=== PATIENT | female | born 1960 | race Caucasian/White ===

== ENCOUNTER 2018-07-17 14:56 | Observation (INO) | payer BC, OTHER ==
[2018-07-17] MEDS ORDERED: Nitroglycerin 0.4 MG TAB (25 Tab Bottle) ONE (15:38)
--- NOTE | 2018-07-17 15:40 | RAD ---
PA AND LATERAL VIEWS OF THE CHEST: History: Chest pain. FINDINGS: The heart size is normal. The lungs are clear. The bony thorax is unremarkable. IMPRESSION: Normal exam. POS: GOLDIEH
[2018-07-17 15:41] LABS: #Eosinphils 0.2 thou/uL (0.0-0.7); #Lymphocytes 1.9 thou/uL (1.20-3.40); #Monocytes 0.6 thou/uL (0.11-0.59); #Neutrophils 5.6 thou/uL (1.40-6.50); %Basophils 0.5 % (0.0-1.0); %Eosinophils 2.1 % (0.0-10.0); %Lymphocytes 22.9 % (21.0-51.0); %Neutrophils 67.5 % (42.0-75.0); Hemoglobin 13.5 g/dL (12.0-16.0); Mean Corpuscular HGB CONC 33.2 g/dL (32.0-36.0); Mean Corpuscular Hemoglobin 29.9 pg (27.0-31.0); Mean Corpuscular Volume 90.1 fL (78.0-98.0); Mean Platelet Volume 7.5 fL (7.4-10.4); Platelet Count 328 thou/uL (130-400); RBC Distribution Width 11.5 % (11.5-14.5); White Blood Cell (WBC) Count 8.3 thou/uL (4.8-10.8)
[2018-07-17 16:02] LABS: Troponin I Less than 0.010 ng/mL (< 0.028)
[2018-07-17 16:09] LABS: ALT (SGPT) 22 U/L (8-55); AST (SGOT) 31 U/L (5-34); Albumin 4.3 g/dL (3.5-5.0); Alkaline Phosphatase 63 U/L (40-150); Anion Gap 13 mmol/L (10-20); BUN (Urea Nitrogen) 15 mg/dL (9.8-20.1); Bilirubin, Total 0.2 mg/dL (0.2-1.2); Calc. Creatinine Clearance 0 mL/min (70-130); Calcium 9.1 mg/dL (7.8-10.44); Carbon Dioxide 22 mmol/L (22-29); Chloride 106 mmol/L (98-107); Estimated GFR-MDRD 77; Globulin 3.2 g/dL (2.4-3.5); Glucose 93 mg/dL (70-105); Potassium 4.4 mmol/L (3.5-5.1); Protein, Total 7.5 g/dL (6.0-8.3); Sodium 137 mmol/L (136-145)
[2018-07-17] MEDS ORDERED: Acetaminophen 325 MG TAB PO PRN (19:14)
[2018-07-17] MEDS ORDERED: Guaifenesin DM 100-10/5 ML UDCUP PO PRN (19:14)
[2018-07-17] MEDS ORDERED: Senokot S 8.6-50 MG TAB PO PRN (19:14)
[2018-07-17] MEDS ORDERED: ALPRAZolam 0.25 MG TAB PO PRN (19:14)
[2018-07-17] MEDS ORDERED: Sodium Chloride 0.9% 1,000 ML IV SCH (19:15)
[2018-07-17] MEDS ORDERED: Acetaminophen 500 MG TAB ONE (19:18)
[2018-07-17 19:43] LABS: Troponin I Less than 0.010 ng/mL (< 0.028)
[2018-07-17 20:38] VITALS: BMI 29.5
[2018-07-17] MEDS: Famotidine 20 MG TAB PO SCH (20:57)
[2018-07-17 21:53] LABS: Troponin I Less than 0.010 ng/mL (< 0.028)
--- NOTE | 2018-07-18 02:49 | HP ---
REASON FOR ADMISSION: Chest pain. HISTORY OF PRESENT ILLNESS: The patient gives history of having retrosternal chest pain that started on this morning. It lasted for 20 minutes. She had radiation of this pain to her left upper extrem ity, back and to the neck area. It was 10/10 in intensity. She was also stressed out with her child edson. They are in the process of adopting a fourth child. No complaints of cough or expectoration. No complaints of fever, PND or orthopnea. No complaints of urinary frequency or urgency. 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 CURRENT MEDICATIONS: Takes estrogen pill orally, Xanax p.r.n. for anxiety, sertraline 25 mg daily, N exium 40 mg daily. ALLERGIES: DEMEROL and ZITHROMAX. PERSONAL HISTORY: Does not abuse alcohol or drugs. No history of smoking. Lives with her . FAMILY HISTORY: Mom at the age of 74 years. She has had history of lymphoma and psoriatic arth ritis. Father lived up to 70 years. He has had prior history of CABG. REVIEW OF SYSTEMS: The following complete review of systems was negative, unless otherwise mentioned in the HPI or below: Constitutional: Weight loss or gain, ability to conduct usual activities. Sk in: Rash, itching. Eyes: Double vision, pain. ENT/Mouth: Nose bleeding, neck stiffness, pain, te nderness. Cardiovascular: Palpitations, dyspnea on exertion, orthopnea. Respiratory: Shortness of breath, wheezing, cough, hemoptysis, fever or night sweats. Gastrointestinal: Poor appetite, abdominal pain, heartburn, nausea, vomiting, constipation, or diarrhea. Genitourinary: Urgency, frequency, dysuria, nocturia. Musculoskeletal: Pain, swelling. Neurologic/Psychiatric: Anxiety, depression. Allergy/Immunologic : Skin rash, bleeding tendency. PHYSICAL EXAMINATION: GENERAL: The patient is a 57-year-old female who is currently not in any acute distress. VITAL SIGNS: Blood pressure 140/110, pulse 70 per minute, respiratory rate 16 per minute, temperatur e 98.1 degrees Fahrenheit, saturating 100% on room air. NECK: Supple, no elevated JVD. HEENT: Eyes, extraocular muscles intact. Pupils reacting to light. Oral cavity, mucous membranes a re moist. No exudates or congestion. CARDIOVASCULAR: S1, S2 heard. Regular rhythm. RESPIRATORY: Air entry 1+ bilaterally. No rales or rhonchi. ABDOMEN: Soft, bowel sounds heard. No tenderness, rigidity or guarding. EXTREMITIES: No peripheral edema or calf tenderness. VASCULAR SYSTEM: Peripheral pulses 1+ bilateral, no ischemic ulcerations or gangrene. CENTRAL NERVOUS SYSTEM: No gross focal deficits noted. Patient is alert, awake, oriented well. PSYCHIATRIC: The patient's mood is a bit anxious, otherwise no hallucinations or delusions. LABORATORY AND X-RAY FINDINGS: Troponin x1 is negative. Albumin 4.3. Chest x-ray done shows no acu te cardiopulmonary abnormalities. BUN 15, creatinine 0.7, serum glucose 93. Liver enzymes are withi n normal limits. White count of 8, H&H 13 and 40, platelet count 328 with 67% neutrophils, MCV is 90 . CLINICAL IMPRESSION AND PLAN: The patient will be under observation on telemetry for chest pain, rul e out acute coronary syndrome. We will obtain two more sets of cardiac enzymes and a nuclear stress test in the morning. Patient also has some stress in her personal life, which is adding up to her cu rrent anxiety. She at times is tearful during my conversation with her. We will continue her Xanax p.r.n. and also continue her on full dose aspirin for now. We will also continue her home dose of Zo loft as before.
[2018-07-18 04:22] LABS: #Basophils 0.1 thou/uL (0.0-0.2); #Eosinphils 0.1 thou/uL (0.0-0.7); #Monocytes 0.5 thou/uL (0.11-0.59); #Neutrophils 2.9 thou/uL (1.40-6.50); %Basophils 0.9 % (0.0-1.0); %Eosinophils 2.6 % (0.0-10.0); %Lymphocytes 34.9 % (21.0-51.0); %Monocytes 8.9 % (0.0-10.0); %Neutrophils 52.6 % (42.0-75.0); Hemoglobin 13.3 g/dL (12.0-16.0); Mean Corpuscular HGB CONC 32.5 g/dL (32.0-36.0); Mean Corpuscular Hemoglobin 29.8 pg (27.0-31.0); Mean Corpuscular Volume 91.6 fL (78.0-98.0); Mean Platelet Volume 7.7 fL (7.4-10.4); Platelet Count 314 thou/uL (130-400); RBC Distribution Width 11.7 % (11.5-14.5); Red Blood Cell (RBC) Count 4.45 mill/uL (4.20-5.40); White Blood Cell (WBC) Count 5.6 thou/uL (4.8-10.8)
[2018-07-18 04:44] LABS: Anion Gap 11 mmol/L (10-20); BUN (Urea Nitrogen) 13 mg/dL (9.8-20.1); Calc. Creatinine Clearance 106 mL/min (70-130); Calcium 8.7 mg/dL (7.8-10.44); Carbon Dioxide 24 mmol/L (22-29); Cardiac Risk 2.9 (Less than 4.5); Chloride 109 mmol/L (98-107); Cholesterol 219 mg/dl (< 200 Desired); Estimated GFR-MDRD 81; Glucose 90 mg/dL (70-105); HDL Cholesterol 75 mg/dL (>60 Neg Risk); LDL Cholesterol, Calculated 125 mg/dL; Potassium 3.8 mmol/L (3.5-5.1); Sodium 140 mmol/L (136-145); Triglycerides 95 mg/dL (Less than 150)
[2018-07-18] MEDS ORDERED: Aspirin 325 MG TAB PO SCH (09:00)
[2018-07-18] MEDS ORDERED: Enoxaparin Sodium 40 MG/0.4 ML SYRINGE SC SCH (09:00)
[2018-07-18 12:39] VITALS: BP 110/62; TEMP 97.8
--- NOTE | 2018-07-18 13:03 | NM ---
CARDIAC SPECT: CLINICAL HISTORY: 57-year-old female with chest pain. Family history of coronary artery disease. TECHNIQUE: A myocardial perfusion scan was performed using the single isotope one day protocol with technetium-9 9m sestamibi. 11 mCi were injected intravenously for the rest exam followed by 28 mCi for the stress exam. Exercise stress was monitored and interpreted by Dr. Amin. FINDINGS: Homogeneous tracer distribution is seen in the myocardial segments on stress and rest images without fixed or reversible defects. GATED SPECT LVEF: 74%. WALL MOTION EXAM: Normal. IMPRESSION: Normal myocardial perfusion scan. POS: RAKESH
[2018-07-18] MEDS: Famotidine 20 MG TAB PO SCH (13:51)
--- NOTE | 2018-07-18 23:56 | DIS ---
DATE OF ADMISSION: 07/17/2018 DATE OF DISCHARGE: 07/18/2018 DISCHARGE DIAGNOSES: 1. Chest pain, atypical, likely musculoskeletal. 2. Gastroesophageal reflux disease. 3. Anxiety disorder. CONSULTATIONS: None. PERTINENT LABORATORY AND X-RAY FINDINGS: Complete metabolic profile within normal limits. Total cho lesterol 219, triglycerides 95, HDL 75, LDL 125. CBC within normal limits. Portable chest x-ray omar ed 07/17/2018 showed no acute cardiopulmonary process. Cardiolite stress test dated 07/18/2018 showe d no evidence of reversible or fixed ischemia with calculated ejection fraction of 74%. HOSPITAL COURSE: The patient was observed on the telemetry unit after initially presenting with ches t pain. The patient underwent serial cardiac biomarkers, which were negative x3 proceeding to Cardio lite stress testing showing no evidence of reversible or fixed ischemia with calculated ejection frac tion of 74%. Telemetry monitoring showed a sinus mechanism without evidence of acute arrhythmia or d ysrhythmia. Overall, patient clinically stable throughout the hospital course. The patient's sympto ms likely related to musculoskeletal in origin. I have discussed followup instructions with the indigo ent at the time of discharge who verbalized understanding and agreement. The patient overall clinica lly stable and ready for discharge on 07/18/2018. DISCHARGE MEDICATIONS: 1. Xanax 0.25 mg p.o. t.i.d. p.r.n. 2. Estrace 1 mg p.o. daily. 3. Zoloft 25 mg p.o. at bedtime. 4. Nexium 40 mg p.o. p.o. daily. FOLLOWUP: The patient will follow up with her primary care provider, Dr. Tomas Oh. CONDITION ON DISCHARGE: Stable. ACTIVITY: Ad mohan. DIET: Heart healthy. CODE STATUS: FULL. DISPOSITION: Home on 07/18/2018.
== END 2018-07-18 15:01 | disposition home or self-care (01) ==
LOC: ERS 14:56 → 2SW 19:53
PROVIDERS: ADMIT Internal Medicine; ATTEND Internal Medicine
DX: R07.89 Other chest pain (principal); K21.9 Gastro-esophageal reflux disease without esophagitis; F41.9 Anxiety disorder, unspecified; F32.9 Major depressive disorder, single episode, unspecified; Z79.899 Other long term (current) drug therapy; Z88.5 Allergy status to narcotic agent; Z88.8 Allergy status to other drugs, medicaments and biological substances; Z90.49 Acquired absence of other specified parts of digestive tract
CPT/HCPCS: 36415; 71046; 78452; 80048; 80053; 80061; 84484; 85025; 85379; 90471; 90686; 93005; 93017; 94760; 96360; 96361; A9500; G0008; G0378; J1650